=== PATIENT | female | born 1970 | race Caucasian/White ===

== ENCOUNTER → 2019-09-29 | Day surgery (SDC) | payer OTHER ==
--- NOTE | 2019-09-30 14:33 | PATH ---
Surgical Pathology Report Patient Name: ZO VALDEZ [facility]. Rec. #: [id number] /Age/Gender: 1970 (Age: 49) / F Account: [id number] Location: Taken: 09/29/2019 Received: 09/29/2019 Reported: 09/30/2019 Physicians: Kelli Bhakta M.D. Specimen(s) Received RIGHT BREAST CORE BIOPSY Clinical History Nonpalpable lesion Mammographic findings, ultrasound findings: Suspicious Final Diagnosis BREAST, RIGHT, 9:30, ULTRASOUND GUIDED CORE BIOPSY: BENIGN BREAST PARENCHYMA WITH STROMAL FIBROSIS, MICROCYST, AND FOCAL SOLAR ELASTOSIS SUGGESTIVE OF RADIAL SCAR. MICROCALCIFICATIONS WITHIN BENIGN DUCTS PRESENT. Comment: Suggest clinical and radiologic correlation. Electronically Signed Cassie Ramirez M.D. Gross Description Received in formalin labeled "right 9:30," are 5 dowd-yellow, cylindrical portions of fibroadipose tissue ranging from 0.5-1.2 cm in length and averaging 0.1 cm in diameter. The specimens are submitted in toto in one cassette. Time to formalin fixation: Less than one minute Total formalin fixation time: Approximately 9 hours. /09/29/[facility]
== END | disposition home or self-care (01) ==
LOC: JMAMMO-SUR 08:24
PROVIDERS: ATTEND Family Medicine
PROC: 0H9T3ZX Drainage of Right Breast, Percutaneous Approach, Diagnostic (ICD-10-PCS; principal; 2019-09-29)
DX: N60.31 Fibrosclerosis of right breast (principal)
CPT/HCPCS: 19083; 77065-TC; 87899; 88305-TC; A4648

== ENCOUNTER 2019-11-11 06:57 | Day surgery (SDC) | payer OTHER ==
[2019-10-30 15:29] VITALS: BMI 28.3
--- NOTE | 2019-11-07 14:41 | HP ---
Admitting History and Physical - Primary Care Physician PCP: Chitra Hope - Admission Chief Complaint: right radial scar History of Present Illness: Patient is a 49 yo female noted to have right 9:30 (6 cm FN) mass on screening mammo and US. The patient underwent a right US guided core bx on 09/29 which was c/w a radial scar. Patient is now to undergo right breast WE with NL. History Source: Patient Limitations to Obtaining History: No Limitations - Past Medical History Cardiovascular: Yes: HTN ...LMP Comment: 2017 ...: No Additional Past Medical History: hypercholesterolemia - Past Surgical History Past Surgical History: Yes: Arthrosocopy (right shoulder arthroscopy (2014)), C- Section (two times ( and )) - Smoking History Smoking history: Current every day smoker Have you smoked in the past 12 months: Yes Aproximately how many cigarettes per day: 20 - Alcohol/Substance Use Hx Alcohol Use: No Home Medications - Allergies Allergies/Adverse Reactions: Allergies Allergy/AdvReac Type Severity Reaction Status Date / Time seasonal Allergy Uncoded 10/30/19 15:20 - Home Medications Home Medications: Ambulatory Orders Amlodipine Besylate [Norvasc -] 10 mg PO DAILY 10/30/19 Fenofibrate 160 mg PO DAILY 10/30/19 Metoprolol Succinate [Toprol Xl] 50 mg PO DAILY 10/30/19 Family Medical History Family History: Unremarkable Review of Systems - Review of Systems Constitutional: reports: No Symptoms Cardiovascular: reports: No Symptoms Respiratory: reports: No Symptoms Physical Examination Constitutional: Yes: Well Nourished, Calm Cardiovascular: Yes: WNL Respiratory: Yes: WNL Breast(s): Yes: Other (Breasts are symmetrical without skin changes or nipple discharge. The breast tissue is diffusely nodular and dense without suspicious masses or adenopathy noted bilaterally.) Problem List - Problems (1) Breast mass, right Code(s): N63.10 - UNSPECIFIED LUMP IN THE RIGHT BREAST, UNSPECIFIED QUADRANT Assessment/Plan Plan right breast WE with NL
[2019-11-11] MEDS ORDERED: PROPOFOL 20 ML ONE ×4 (09:54→10:35)
[2019-11-11] MEDS ORDERED: MIDAZOLAM HCL 2 MG/2 ML SINGLE DOSE VIAL ONE (09:54)
[2019-11-11] MEDS ORDERED: LIDOCAINE HCL 1%, 10 MG/ML (20ML VIAL) ONE (09:58)
[2019-11-11] MEDS ORDERED: BUPIVACAINE HCL/PF 0.5% (5MG/ML) 10 ML VIAL ONE (09:58)
[2019-11-11] MEDS ORDERED: BUPIVACAINE HCL 0.25% 125 MG/50 ML VIAL ONE (10:29)
[2019-11-11] MEDS ORDERED: ONDANSETRON 4 MG/2 ML VIAL IVPUSH PRN ×2 (10:46→11:11)
[2019-11-11] MEDS ORDERED: oxyCODONE HCL 5 MG TABLET PO PRN ×2 (10:46)
[2019-11-11] MEDS ORDERED: DEXAMETHASONE SOD PHOSPHATE 4 MG/1 ML VIAL ONE (10:52)
[2019-11-11] MEDS ORDERED: ONDANSETRON 4 MG/2 ML VIAL ONE (10:52)
[2019-11-11] MEDS ORDERED: LACTATED RINGERS SOLUTION 1,000 ML IV SCH (11:00)
[2019-11-11] MEDS ORDERED: KETOROLAC TROMETHAMINE 30 MG/1 ML VIAL IVPUSH PRN (11:11)
[2019-11-11] MEDS ORDERED: KETOROLAC TROMETHAMINE 30 MG/1 ML VIAL ONE (11:12)
[2019-11-11] MEDS ORDERED: DEXTROSE 5%-0.45% SALINE 1,000 ML IV SCH (11:15)
[2019-11-11 12:39] VITALS: PULSE 81; TEMP 98.1
[2019-11-11 13:01] VITALS: BP 132/83
--- NOTE | 2019-11-11 18:21 | OP ---
DATE OF OPERATION: 11/11/2019 PREOPERATIVE DIAGNOSIS: Right breast radial scar. POSTOPERATIVE DIAGNOSIS: Right breast radial scar. PROCEDURE: Right mammographically localized partial mastectomy. ANESTHESIA: IV sedation with local. ATTENDING SURGEON: Arabella Go MD RESEARCH INTERN: TIM Small ESTIMATED BLOOD LOSS: Minimal. COMPLICATIONS: None. DESCRIPTION OF PROCEDURE: Patient was made aware of the risks and benefits of the procedure and consented. Preoperatively, she went to radiology suite where a wire and needle were placed next to the indexed lesion. She was then placed in a supine position on the operating room table, and after IV sedation was administered, the operative site was prepped and draped in the usual sterile fashion; 1% lidocaine mixed at a 1:1 ratio with 0.25% bupivacaine was used for local anesthesia. Curvilinear periareolar incision was then made using electrocautery. Tissues were dissected down to the needle. Needle was drawn to the puncture site and a wire through the wound. Tissues around the wire were then sharply excised and submitted with a short suture superior, long suture lateral. Specimen radiograph confirmed the presence of the indexed lesion. The specimen was then submitted for permanent sectioning. The wound was copiously irrigated with normal saline. Hemostasis maintained by electrocautery. The wound was then closed with deep 2-0 Vicryl followed by interrupted subdermal 3-0 Vicryl followed by a running, subcuticular 4-0 Monocryl. Steri-Strips, sterile dressing, and a compression bra were then applied, and the patient, having tolerated the procedure well, was transferred to the recovery room in excellent condition. ARABELLA TOPETE M.D. [id number]
--- NOTE | 2019-11-14 14:52 | PATH ---
Surgical Pathology Report Patient Name: ZO VALDEZ Med. Rec. #: [id number] /Age/Gender: 1970 (Age: 49) / F Account: [id number] Location: [facility] Taken: 11/11/2019 Received: 11/11/2019 Reported: 11/14/2019 Physicians: Chitra Hope M.D. Specimen(s) Received RIGHT BREAST WIDE EXSICION Clinical History Radial scar Final Diagnosis BREAST, RIGHT, WIDE EXCISION: RADIAL SCAR WITH FIBROCYSTIC AND COLUMNAR CELL CHANGES AND ASSOCIATED CALCIFICATIONS. PRIOR BIOPSY SITE CHANGES ARE PRESENT. 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 This finding supports the diagnosis. Electronically Signed Autumn Montalvo M.D. Gross Description Received in formalin, labeled "right breast wide excision," is a 3.1 x 2.5 x 2.0 cm. dowd-yellow, irregular, portion of fibroadipose tissue. There is no needle localization wire present. There is a short suture marking the superior aspect and a long suture marking the lateral aspect, per the surgeon. There is no skin present. The specimen is inked as follows: superior and lateral blue; inferior green; medial yellow; anterior red; deep black. The specimen is serially sectioned from lateral to medial. Sectioning reveals abundant focally firm fibrous tissue. There is ventura metallic biopsy clip identified. No definitive mass is identified. The specimen is entirely and sequentially submitted in 7 cassettes with the lateral margin in cassette 1 and the medial margin cassette 7 (biopsy clip in cassettes 4-5). Time to formalin fixation: 5 minutes Total formalin fixation time: Approximately 31 hours. DL/11/12/2019 [place]udi11/12/2019
== END 2019-11-11 13:15 | disposition home or self-care (01) ==
LOC: FASU 06:57
PROVIDERS: ATTEND Surgery Surgical Oncology
PROC: 0HBT0ZZ Excision of Right Breast, Open Approach (ICD-10-PCS; principal; 2019-11-11 10:36)
DX: N64.89 Other specified disorders of breast (principal); I10 Essential (primary) hypertension; F17.210 Nicotine dependence, cigarettes, uncomplicated
CPT/HCPCS: 19281; 76098-TC-FY; 88307-TC; 88341-TC; 88342-TC; 94760

== ENCOUNTER 2023-11-26 10:31 | Emergency (ER) | payer OTHER ==
[2023-11-26 10:40] VITALS: RESP 18; TEMP 98.3
[2023-11-26] MEDS ORDERED: EPINEPHrine 1:10,000 (P-F SYR) 1 MG/10 ML DISP.SYRIN ONE (11:02)
[2023-11-26] MEDS ORDERED: EPINEPHrine/PF 1 MG/1 ML (1:1,000) AMPULE ONE (11:03)
[2023-11-26] MEDS ORDERED: FAMOTIDINE 20 MG/50 ML IVPB 20 MG/50 ML MG IVPB ONE (11:09)
[2023-11-26] MEDS ORDERED: methylPREDNISolone NA SUCC 125 MG/2 ML VIAL ONE (11:09)
[2023-11-26] MEDS: FAMOTIDINE 20 MG/50 ML IVPB 20 MG/50 ML MG IVPB ONE (11:22)
[2023-11-26] MEDS: SODIUM CHLORIDE 0.9% 500 ML INFUS.BAG IV ONE (11:22)
[2023-11-26] MEDS: EPINEPHrine 1:1,000 0.3 MG/0.3 ML SYR IM ONE (11:22)
[2023-11-26] MEDS: methylPREDNISolone NA SUCC 125 MG/2 ML VIAL IVPUSH ONE (11:22)
[2023-11-26] MEDS ORDERED: DEXAMETHASONE SOD PHOSPHATE 10 MG/1 ML VIAL ONE (11:23)
[2023-11-26] MEDS: DEXAMETHASONE SOD PHOSPHATE 10 MG/1 ML VIAL IVPUSH ONE (11:25)
[2023-11-26 11:31] LABS: HEMATOCRIT 45.4 % (32.4-45.2); HEMOGLOBIN 14.6 GM/dL (10.7-15.3); MCH 29.4 pg (25.7-33.7); MCHC 32.1 g/dl (32.0-36.0); MEAN CELL VOLUME 91.8 fl (80-96); MEAN PLT VOLUME 9.3 fl (7.5-11.1); PLATELET COUNT 251 10^3/uL (134-434); RBC 4.94 M/mm3 (3.60-5.2)
[2023-11-26 11:38] LABS: INR 1.05 (0.83-1.09); PROTHROMBIN TIME (PATIENT) 12.2 SEC (9.7-13.0)
[2023-11-26 12:00] LABS: POTASSIUM 5.5 mmol/L (3.5-5.1)
[2023-11-26 12:02] LABS: ALBUMIN 3.5 g/dl (3.4-5.0); CALCIUM 10.3 mg/dL (8.5-10.1)
[2023-11-26 12:03] LABS: BLOOD UREA NITROGEN 18.5 mg/dL (7-18); MAGNESIUM 2.4 mg/dL (1.8-2.4)
[2023-11-26 12:06] LABS: CREATININE 1.5 mg/dL (0.55-1.3)
[2023-11-26 12:07] LABS: BILIRUBIN,TOTAL 0.4 mg/dL (0.2-1)
[2023-11-26 13:10] LABS: ANISOCYTOSIS 0; HELMET CELLS 0; HOWELL-JOLLY BODIES 0; MACROCYTOSIS 0; OVALOCYTE 0; ROULEAU 0; SICKELED CELLS 0; TARGET CELLS 0; TEAR DROP CELLS 0; TOXIC GRANULATION 0
[2023-11-26 13:52] LABS: POTASSIUM 4.9 mmol/L (3.5-5.1)
[2023-11-26 13:53] LABS: CALCIUM 9.7 mg/dL (8.5-10.1)
[2023-11-26 13:57] LABS: CREATININE 1.4 mg/dL (0.55-1.3)
[2023-11-26 16:43] VITALS: BP 150/100; PULSE 83
== END 2023-11-26 16:44 | disposition home or self-care (01) ==
LOC: JER 10:31
PROC: 3E033GC Introduction of Other Therapeutic Substance into Peripheral Vein, Percutaneous Approach (ICD-10-PCS; principal; 2023-11-26)
PROC: 3E033GC Introduction of Other Therapeutic Substance into Peripheral Vein, Percutaneous Approach (ICD-10-PCS; 2023-11-26)
PROC: 3E033GC Introduction of Other Therapeutic Substance into Peripheral Vein, Percutaneous Approach (ICD-10-PCS; 2023-11-26)
PROC: 3E033GC Introduction of Other Therapeutic Substance into Peripheral Vein, Percutaneous Approach (ICD-10-PCS; 2023-11-26)
PROC: 3E023GC Introduction of Other Therapeutic Substance into Muscle, Percutaneous Approach (ICD-10-PCS; 2023-11-26)
DX: T78.3XXA Angioneurotic edema, initial encounter (principal); K14.6 Glossodynia; R13.10 Dysphagia, unspecified; R51.9 Headache, unspecified; R05.9 Cough, unspecified; R07.0 Pain in throat
CPT/HCPCS: 36415; 80048; 80053; 83735; 84702; 84703; 85025; 85610; 85730; 86850; 86900; 86901; 96365; 96372; 96375; 99284-25; J0171; J1100